=== PATIENT | female | born 1965 | race Caucasian/White ===

== ENCOUNTER 2018-02-21 17:26 | Emergency (ER) | payer OTHER ==
[~2018-02-21] VITALS: Ht 157.5 cm; Wt 82.1 kg
[~2018-02-21 17:26] MED LIST: ADVIL200 MG PO; ALBUTEROL SULF8.5 GM IH; CINNABETIC1 CAPSUL1 PO; CLONAZEPAM0.5 MG PO; CREON 241 CAPSULE PO; CRESTOR5 MG PO; GLUCOPHAGE500 MG PO; MULTIVITAMIN1 EAC2 PO; NASONEX17 GM BOTH NARES; SYNTHROID100 MCG PO; ZETIA10 MG PO
[2018-02-21 17:48] LABS: HEMATOCRIT 42.4 % (36.0-46.0); HEMOGLOBIN 14.3 G/DL (11.9-15.5); MCH 28.3 PG (29.0-34.0); MCHC 33.7 G/DL (30.0-36.0); PLATELET COUNT 354 K/uL (156-360); RBC DIS.WIDTH-CV 12.3 % (11.8-14.6); RBC DIS.WIDTH-SD 37.4 % (39-53); RED BLOOD COUNT 5.05 M/uL (3.80-5.20); WHITE BLOOD COUNT 7.3 K/uL (4.1-10.2)
[2018-02-21 17:57] LABS: CHLORIDE 108 mEq/L (99-109); POTASSIUM 4.3 mEq/L (3.7-5.4); SODIUM 140 mEq/L (136-147)
[2018-02-21 17:58] LABS: GLUCOSE 114 mg/dL (70-99)
[2018-02-21 18:02] LABS: CREATININE 0.9 mg/dL (0.6-1.3); GFR ESTIMATE (CALCULATED) > 59 mL/min/
[2018-02-21 18:03] LABS: UREA NITROGEN (BUN) 14 mg/dL (9-23)
[2018-02-21 18:10] LABS: QUANTITATIVE HCG < 4.0 MIU/ML
[2018-02-21 18:12] LABS: APPEARANCE SL.HAZY ((CLEAR)); BILIRUBIN NEGATIVE; BLOOD LARGE; COLOR AMBER ((YELLOW)); GLUCOSE (STRIP) NEGATIVE; KETONES 5; LEUKOCYTES MODERATE; NITRITE NEGATIVE; PROTEIN (STRIP) 30; SPECIFIC GRAVITY 1.032 (1.000-1.030); UROBILINOGEN 0.2 MG/DL (0.2-1.0)
[2018-02-21 18:18] LABS: ALBUMIN 4.4 g/dL (3.2-4.8)
[2018-02-21 18:21] LABS: TOTAL PROTEIN 7.4 g/dL (6.4-8.3)
[2018-02-21 18:22] LABS: TOTAL BILIRUBIN 0.5 mg/dL (0.0-1.0)
[2018-02-21 18:23] LABS: ALKALINE PHOSPHATASE 83 IU/L (3-129)
[2018-02-21 18:26] LABS: AST (GOT) 24 IU/L (2-34); DIRECT BILIRUBIN 0.2 mg/dL (0.0-0.3)
[2018-02-21 18:27] LABS: ALT (GPT) 21 IU/L (3-49); LIPASE 9 U/L (1.0-51.0)
[2018-02-21 18:48] LABS: BACTERIA NONE SEEN /HPF; EPITHELIAL CELLS 3+ /HPF; MUCUS 4+ /LPF; UCUL ADDED? YES
[2018-02-21] MEDS ORDERED: CIPRO500 MG PO (21:28)
[2018-02-21] MEDS ORDERED: BENTYL10 MG PO (21:28)
[2018-02-21] MEDS ORDERED: ZOFRAN4 MG PO (21:28)
[2018-02-21 21:58] VITALS: BP 150/66
== END 2018-02-21 22:00 | disposition home or self-care (01) ==
LOC: EME 17:26
DX: K52.9 Noninfective gastroenteritis and colitis, unspecified (principal); N39.0 Urinary tract infection, site not specified; E11.9 Type 2 diabetes mellitus without complications; Z79.84 Long term (current) use of oral hypoglycemic drugs; Z87.891 Personal history of nicotine dependence
CPT/HCPCS: 74176; 80048; 80076; 81003; 83690; 84702; 85027; 87086; 99281; 99284; J1885; J2405; J7030

== ENCOUNTER 2018-05-21 14:34 | Emergency (ER) | payer OTHER ==
[~2018-05-21] VITALS: Ht 157.5 cm; Wt 78.6 kg
[~2018-05-21 14:34] MED LIST changes: +BENTYL10 MG PO; +CIPRO500 MG PO; +ZOFRAN4 MG PO
[2018-05-21] MEDS ORDERED: PERCOCET 5/31 TABLET PO (16:02)
[2018-05-21] MEDS ORDERED: MOTRIN800 MG PO (16:02)
[2018-05-21 17:08] VITALS: BP 105/64
== END 2018-05-21 17:58 | disposition home or self-care (01) ==
LOC: EME 14:34
PROC: 2W3RX1Z Immobilization of Left Lower Leg using Splint (ICD-10-PCS; principal; 2018-05-21)
DX: S82.65XA Nondisplaced fracture of lateral malleolus of left fibula, initial encounter for closed fracture (principal); W17.2XXA Fall into hole, initial encounter; Y93.73 Activity, racquet and hand sports; E11.9 Type 2 diabetes mellitus without complications
CPT/HCPCS: 73610; 99281; 99284